=== PATIENT | male | born 1975 | race Caucasian/White ===

== ENCOUNTER 2016-05-13 18:24 | Emergency (ER) | payer OTHER ==
[2016-05-13 18:55] VITALS: BMI 24.3
[2016-05-13] MEDS ORDERED: SILVER SULFADIAZINE 1% CREAM 20 GM TUBE TOP ONE (18:55)
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
[2016-05-13] MEDS ORDERED: Pharmacy Review for Metformin - IV Contrast Given SCH (19:00)
[2016-05-13 19:07] LABS: AUTOMATED BASOPHIL 0.8 % (0-2); AUTOMATED EOSINOPHIL 3.5 % (0-5); AUTOMATED LYMPH 43.4 % (17-44); AUTOMATED MONOCYTE 7.2 % (3-10); AUTOMATED NEUTROPHIL 45.1 % (45-76); MPV 8.3 fL (7.4-10.4)
[2016-05-13 19:14] LABS: BLOOD UREA NITROGEN 15 MG/DL (9-20); CALCIUM 9.5 MG/DL (8.4-10.2); CALCULATED OSMOLALITY 274 MOs/Kg (270-290); CHLORIDE 106 mEq/L (98-107); GLUCOSE 96 MG/DL (70-99); SODIUM LEVEL 142 mEq/L (137-146); TOTAL PROTEIN 7.2 G/DL (6.3-8.2)
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
[2016-05-13] MEDS ORDERED: IBUPROFEN 600 MG TAB PO ONE (20:24)
[2016-05-13] MEDS ORDERED: HYDROCODONE 5 MG/ACETAMIN 325 MG TAB PO ONE (20:24)
[2016-05-13 20:52] VITALS: BP 133/83; PULSE 93; TEMP 98
== END 2016-05-13 20:50 | disposition home or self-care (01) ==
LOC: ED 18:24
DX: S06.0X9A Concussion with loss of consciousness of unspecified duration, initial encounter (principal); S20.212A Contusion of left front wall of thorax, initial encounter; S20.211A Contusion of right front wall of thorax, initial encounter; S60.812A Abrasion of left wrist, initial encounter; S60.811A Abrasion of right wrist, initial encounter; V43.52XA Car driver injured in collision with other type car in traffic accident, initial encounter; J98.11 Atelectasis
CPT/HCPCS: 36415; 70450; 71260; 72125; 73110; 80053; 85025; 99283; A9698; J3490

== ENCOUNTER 2016-06-01 14:33 | Emergency (ER) | payer OTHER ==
[2016-06-01 14:33] VITALS: BMI 24.3
[2016-06-01 14:39] VITALS: TEMP 98
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
[2016-06-01 16:35] VITALS: BP 128/82; PULSE 75
== END 2016-06-01 16:32 | disposition home or self-care (01) ==
LOC: ED 14:33
DX: G40.89 Other seizures (principal)
CPT/HCPCS: 36415; 82306; 82607; 82746; 82784; 83036; 84155; 84165; 84207; 84443; 84446; 85651; 86038; 86334; 99284